=== PATIENT | male | born 1985 | race Caucasian/White ===

== ENCOUNTER 2018-08-29 07:39 | Emergency (ER) | payer MEDICAID ==
[2018-08-29 07:46] VITALS: BMI 28.0
[2018-08-29 08:30] LABS: ALKALINE PHOSPHATASE 87 U/L (46-116); ALT (SGPT) 52 U/L (10-68); BILIRUBIN - TOTAL 0.94 mg/dL (0.2-1.3); CALC OSMOLALITY 276 mosm/kg (275-300); CALCIUM 8.9 mg/dL (8.5-10.1); CARBON DIOXIDE 24.3 mmol/L (21.0-32.0); CHLORIDE - SERUM 106 mmol/L (98-107); CREATININE - SERUM 1.1 mg/dL (0.6-1.3); GLUCOSE 102 mg/dL (74-106); LIPASE 234 U/L (73-393); POTASSIUM - SERUM 4.3 mmol/L (3.5-5.1); PROTEIN - SERUM 7.4 g/dL (6.4-8.2); SODIUM 138 mmol/L (136-145); UREA NITROGEN 15 mg/dL (7-18); eGFR NON AFRICAN AMERICAN 82 mL/min (90-120)
[2018-08-29 08:46] LABS: APPEARANCE CLEAR (CLEAR); BILIRUBIN NEGATIVE (NEGATIVE); COLOR YELLOW (YELLOW); GLUCOSE NEGATIVE (NEGATIVE); KETONE NEGATIVE (NEGATIVE); NITRITE NEGATIVE (NEGATIVE); PROTEIN NEGATIVE (NEGATIVE); SPECIFIC GRAVITY 1.015 (1.005-1.020); UROBILINOGEN NORMAL (NORMAL)
[2018-08-29 09:05] LABS: BASOPHILS 0.3 % (0-2); EOSINOPHILS 1.4 % (0-7); HEMATOCRIT 42.3 % (42.0-54.0); HEMOGLOBIN 14.5 g/dL (13.5-17.5); IMMATURE GRANULOCYTES 0.3 % (0-5); LYMPHOCYTES 35.5 % (15-50); MCH 29.7 pg (26.0-34.0); MCHC 34.3 g/dL (31.0-37.0); MCV 86.7 fL (80.0-100.0); MEAN PLATELET VOLUME 10.6 fL (7.4-10.4); MONOCYTES 7.8 % (2-11); NEUTROPHILS 54.7 % (40-80); PLATELET COUNT 314 10x3/uL (130-400); RBC 4.88 10x6/uL (4.20-6.10); RDW 13.2 % (11.5-14.5); WBC 7.1 10x3/uL (4.8-10.8)
[2018-08-29] MEDS ORDERED: CYCLOBENZAPRINE10 MG PO (09:07)
[2018-08-29] MEDS ORDERED: VOLTAREN75 MG PO (09:07)
[2018-08-29 09:18] VITALS: BP 118/60
== END 2018-08-29 09:20 | disposition home or self-care (01) ==
LOC: D.ER 07:39
PROVIDERS: Emergency Medicine
DX: S39.012A Strain of muscle, fascia and tendon of lower back, initial encounter (principal); X58.XXXA Exposure to other specified factors, initial encounter; Y93.89 Activity, other specified; Y92.89 Other specified places as the place of occurrence of the external cause

== ENCOUNTER → 2018-09-20 10:37 | Outpatient (CLI) | payer MEDICAID ==
[2018-08-29 07:46] VITALS: BMI 28.0
[~2018-09-20 10:37] MED LIST: CYCLOBENZAPRINE10 MG PO; VOLTAREN75 MG PO
== END | disposition home or self-care (01) ==
LOC: D.RAD 10:37
PROVIDERS: ATTEND Emergency Medicine
DX: G89.29 Other chronic pain (principal)

== ENCOUNTER → 2018-12-09 09:16 | Outpatient (CLI) | payer MEDICAID ==
--- NOTE | 2018-12-13 13:08 | EC ---
PATIENT:HUMAIRA DEL ROSARIO DATE OF SERVICE: 12/09/18 SEX: M MEDICAL RECORD: [id number] DATE OF : [birth year] [facility] AGE OF PATIENT: 33 ADMISSION DATE: 12/09/18 REFERRING PHYSICIAN: INTERPRETING PHYSICIAN: RUDY ARNDT MD ECHOCARDIOGRAM REPORT ECHO CHARGES 4 ECHO COMPLETE Date: 12/09/18 CLINICAL DIAGNOSIS: HEART MURMUR HX FAMILY HX OF CAD ECHOCARDIOGRAPHIC MEASUREMENTS (adult normal given) AC root (d.<3.7cm) 3.3 cm LV Septum d (<1.2 cm> 1.2 cm Valve Excursion 2.1 cm LV Septum (systole) 1.4 cm Left Atria (s.<4.0cm> 4.3 cm LVPW d(<1.2cm) 1.3 cm RV (d.<2.3cm) 4.7 cm LVPW (sytole) 1.6 cm LV diastole(<5.6CM) 5.0 cm MV E-F(>70mm/sec) cm LV systole 3.2 cm LVOT Diameter 2.4 cm MV exc.(>10mm) 1.8 cm Est.ejection fraction (50-75%) % DOPPLER: LVIT cm/sec A 61.0 cm/sec E 94.0 cm/sec LA cm/sec RVSP 31 mmHg LVOT 86 cm/sec AOP1/2T m/s Asc. Ao 114 cm/sec RVOT 83 cm/sec RA cm/sec PA 116 cm/sec AV Gradient Peak 5.21 mmHg AV Mean 2.29 mmHg AV Area 3.9 cm MV Gradient Peak 3.25 mmHg MV Mean 0.92 mmHg MV Area cm COMMENTS: [employer] Miller Helper: 2 DANTE PATINO Motor Room Controller: 3 Dr. Wilcox TAPE# PACS Pericardial Effusion N DATE OF SERVICE: Adequate 2D, Color Flow, Spectral Doppler, and M-Mode Borderline LVH. LV internal dimensions normal. Wall motion is normal. EF is greater than 55%. Aortic valve is tricuspid. No evidence of stenosis by Doppler interrogation. The left atrium is minimally dilated at 4.3 cm. Mitral valve shows no prolapse. Trace MR. Right-sided chambers are grossly normal. Trace TR. ECHOCARDIOGRAM REPORT [id number] HUMAIRA DEL ROSARIO TRANSINT:[id number] Voice Confirmation ID: [id number] DOCUMENT ID: [id number] RUDY ARNDT MD at 1308 CC: [id number] DICTATION DATE: 12/12/18 1351 [employer] REPRESENTATIVE: 12/12/18 2350 DEP CLI 12/09/18 [place] [id number] [place] [id number]
== END | disposition home or self-care (01) ==
LOC: D.HCCECHO 09:16
PROVIDERS: ATTEND Internal Medicine Interventional Cardiology
DX: R01.1 Cardiac murmur, unspecified (principal)

== ENCOUNTER → 2019-08-24 21:33 | Outpatient (CLI) | payer MEDICAID | END | disposition home or self-care (01) | LOC: D.LABREF 21:33 | PROVIDERS: ATTEND Legal Medicine | DX: Z82.41 Family history of sudden cardiac death (principal); E53.9 Vitamin B deficiency, unspecified ==